=== PATIENT | female | born 1945 | race African-American/Black ===

== ENCOUNTER 2017-03-30 12:38 | Emergency (ER) | payer MEDICARE, OTHER ==
[~2017-03-30] VITALS: Ht 175.3 cm; Wt 111.6 kg
[~2017-03-30 12:38] MED LIST: ALPR0.5T PO; ASPI-630 PO; ASPI1CPM PO; ATOR20TA PO; Amoxicillin/Potassium Clav PO; CARI350T PO; CARV25TA PO; CETI10TA16 PO; CIPR500T6 PO; DIGO125T16 PO; DIPH25CA58 PO; ERTA1VIA IJ; FENO145T PO; FLUT16SP2 NS; FURO80TA72 PO; HYDR12.58 PO; HYDR25TA PO; INSU100C4 SQ; INSU100I13 SQ; INSU100I17 SQ; INSU100I27 SQ; INSU100V8 SQ; ISOS1TAB2 PO; LISI-377 PO; LISI10TA PO; METF-620 PO; METO100T2 PO; METO2.5T PO; MONT10TA9 PO; MULT1CAP15 PO; NIAC500T PO; NITR12SP7 TL; OMEP40CA2 PO; ONDA8TAB9 PO; OXYC-323 PO; POTA10TA31 PO; POTA20TA82 PO; PROAIR HFA8.5 GM IH; SAXA5TAB PO; SCOP1PAT TP; SPIR25TA PO; SPIR25TA3 PO; TEMA30CA6 PO; TORS20TA PO; TORS20TA2 PO; VENL150C PO; Vancomycin Hcl PO
[2017-03-30 12:46] VITALS: BP 132/65
[2017-03-30] MEDS ORDERED: CEPH500T PO (13:14)
--- NOTE | 2017-03-30 13:15 | PHYS DOC ---
Past Medical History Past Medical History: Anxiety, CAD, COPD, CVA, Depression, Diabetes-Type II, GERD, Hypertension, [place], Pancreatitis, UTI Past Surgical History: Appendectomy, Cholecystectomy, Coronary Bypass Surgery, Pacemaker, Tubal ligation, Other Additional Past Surgical Histo: Rt.knee,hernia Alcohol Use: None Drug Use: None Adult General Chief Complaint Chief Complaint: ABSCESS HPI HPI Patient is a 71 year old female presents to the emergency department stating she has an area on the back of her right head that has drainage and discharge noted she states that she has had a spot there that has been swollen and tender for the last few days. Patient denies any fever, chills or any nausea or vomiting. Patient is unsure when her last tetanus immunization occurred. Review of Systems Review of Systems Constitutional: Denies fever or chills [] Eyes: Denies change in visual acuity, redness, or eye pain [] HENT: Denies nasal congestion or sore throat [] Respiratory: Denies cough or shortness of breath [] Cardiovascular: No additional information not addressed in HPI [] GI: Denies abdominal pain, nausea, vomiting, bloody stools or diarrhea [] : Denies dysuria or hematuria [] Musculoskeletal: Denies back pain or joint pain [] Integument: Denies rash or skin lesions. Complaint of area to the right occipital part of her head that has drainage and discharge for the last few days. Neurologic: Denies headache, focal weakness or sensory changes [] Endocrine: Denies polyuria or polydipsia [] Current Medications Current Medications Current Medications Medications (Trade) Dose Ordered Sig/Gil Start Time Stop Time Status Last Admin Dose Admin Diphtheria/ Tetanus/Acell Pertussis (Boostrix) 0.5 ml ONCE ONCE 03/30/17 13:30 03/30/17 13:31 03/30/17 13:09 0.5 ML Allergies Allergies Allergies Coded Allergies Type Severity Reaction Last Updated Verified iodine Allergy Severe Anaphylaxis 06/01/15 Yes I S O L A T I O N *CONTACT* Allergy Unknown 06/01/15 Yes codeine Adverse Reaction Intermediate Nausea and Vomiting 06/01/15 Yes Physical Exam Physical Exam Constitutional: Well developed, well nourished, no acute distress, non-toxic appearance. [] HENT: Normocephalic, atraumatic, bilateral external ears normal, oropharynx moist, no oral exudates, nose normal. [] Eyes: PERRLA, EOMI, conjunctiva normal, no discharge. [] Neck: Normal range of motion, no tenderness, supple, no stridor. [] Cardiovascular:Heart rate regular rhythm, no murmur [] Lungs & Thorax: Bilateral breath sounds clear to auscultation [] Skin: Warm, dry, no erythema, no rash. Patient with an abscess noted to her right upper back had. It appears to be draining some yellow discharge. The area appears to be red appears to be the size of a small marble. Back: No tenderness Extremities: No tenderness, no cyanosis, no clubbing, ROM intact, no edema. [] Neurologic: Alert and oriented X 3, normal motor function, normal sensory function, no focal deficits noted. [] Psychologic: Affect normal, judgement normal, mood normal. [] Current Patient Data Vital Signs Vital Signs Date Time Temp Pulse Resp B/P (MAP) Pulse Ox O2 Delivery O2 Flow Rate FiO2 03/30/17 12:46 97.9 92 20 132/65 (87) 98 Room Air 97.9 EKG EKG [] Radiology/Procedures Radiology/Procedures [] Course & Med Decision Making Course & Med Decision Making Pertinent Labs and Imaging studies reviewed. (See chart for details) Patient was updated with a tetanus immunization here in the emergency department. Recommended cleaning the head with soap and water twice a day. Patient will be provided with Keflex. She was encouraged follow-up with her primary care physician in the next 3-5 days. She will be discharged home in stable condition signs symptoms to return back to emergency department as been provided. [] Dragon Disclaimer Dragon Disclaimer This electronic medical record was generated, in whole or in part, using a voice recognition dictation system. Departure Departure Impression: Primary Impression: Abscess Disposition: 01 HOME, SELF-CARE Condition: STABLE Referrals: NAFISA GOLDSMITH MD (PCP) Patient Instructions: Abscess, [id number] Additional Instructions: Keep the area clean and dry. You may apply antibiotic ointment as needed to the area. Medication as prescribed. Follow-up to primary care physician next 3-5 days. Return back to emergency prior signs symptoms of become worse. Scripts Cephalexin (CEPHALEXIN) 500 Mg Tablet 1 TAB PO BID, #20 TAB Prov: ALYSSA PAINTER IMPLEMENTATION CONSULTANT 03/30/17 ALYSSA PAINTER APRN Mar 30, 2017 13:15
[2017-03-30] MEDS ORDERED: DIPHTH,PERTUSS(ACELL),TET TOX 0.5 ML DISP.SYRIN. VAX IM ONE (13:30)
== END 2017-03-30 13:16 | disposition home or self-care (01) ==
LOC: ER 12:38
DX: L02.811 Cutaneous abscess of head [any part, except face] (principal); F41.9 Anxiety disorder, unspecified; I25.10 Atherosclerotic heart disease of native coronary artery without angina pectoris; J44.9 Chronic obstructive pulmonary disease, unspecified; I10 Essential (primary) hypertension; F32.9 Major depressive disorder, single episode, unspecified; E11.9 Type 2 diabetes mellitus without complications; K21.9 Gastro-esophageal reflux disease without esophagitis; I25.2 Old myocardial infarction; Z95.0 Presence of cardiac pacemaker; Z95.1 Presence of aortocoronary bypass graft; Z90.49 Acquired absence of other specified parts of digestive tract; Z87.440 Personal history of urinary (tract) infections; Z91.041 Radiographic dye allergy status; Z86.73 Personal history of transient ischemic attack (TIA), and cerebral infarction without residual deficits; Z88.8 Allergy status to other drugs, medicaments and biological substances
CPT/HCPCS: 90471; 90715; 99284-25

== ENCOUNTER → 2017-09-27 | Day surgery (SDC) | payer MEDICARE, OTHER ==
[~2017-09-27] MED LIST changes: -ALPR0.5T PO; -ASPI-630 PO; -ASPI1CPM PO; -ATOR20TA PO; -Amoxicillin/Potassium Clav PO; -CARI350T PO; -CARV25TA PO; -CETI10TA16 PO; -CIPR500T6 PO; -DIGO125T16 PO; -DIPH25CA58 PO; -ERTA1VIA IJ; -FENO145T PO; -FLUT16SP2 NS; -FURO80TA72 PO; -HYDR12.58 PO; -HYDR25TA PO; -INSU100C4 SQ; -INSU100I13 SQ; -INSU100I17 SQ; -INSU100I27 SQ; -INSU100V8 SQ; -ISOS1TAB2 PO; +IV RINGERS,LACTATED 1000ML 1,000 ML IV; +LIDOCAINE 1% PF 2 ML VIAL. ID; -LISI-377 PO; -LISI10TA PO; -METF-620 PO; -METO100T2 PO; -METO2.5T PO; -MONT10TA9 PO; -MULT1CAP15 PO; -NIAC500T PO; -NITR12SP7 TL; -OMEP40CA2 PO; -ONDA8TAB9 PO; +ONDANSETRON PF 4 MG/2 ML VIAL. IV; -OXYC-323 PO; -POTA10TA31 PO; -POTA20TA82 PO; -PROAIR HFA8.5 GM IH; +PROCHLORPERAZINE 10 MG/2 ML VIAL. IV; +PROPOFOL 40 ML IV; -SAXA5TAB PO; -SCOP1PAT TP; -SPIR25TA PO; -SPIR25TA3 PO; -TEMA30CA6 PO; -TORS20TA PO; -TORS20TA2 PO; -VENL150C PO; -Vancomycin Hcl PO; +fentaNYL PF VIAL 100 MCG/2 ML VIAL IV
== END | disposition home or self-care (01) ==
LOC: ENDOS 09:42
DX: Z09 Encounter for follow-up examination after completed treatment for conditions other than malignant neoplasm (principal); I10 Essential (primary) hypertension (principal); E11.9 Type 2 diabetes mellitus without complications; Z86.010 Personal history of colon polyps
CPT/HCPCS: 45378; J2704

== ENCOUNTER 2018-09-20 18:55 | Emergency (ER) | payer MEDICARE, OTHER ==
[~2018-09-20] VITALS: Ht 160 cm; Wt 118.8 kg
[~2018-09-20 18:55] MED LIST changes: +ALBU2.5V8 IH; +ALPR0.5T PO; +ASPI-630 PO; +ASPI1CPM PO; +ATOR20TA PO; +Amoxicillin/Potassium Clav PO; +CARI350T PO; +CARV25TA PO; +CEPH500T PO; +CETI10TA16 PO; +CIPR500T6 PO; +DIGO125T79 PO; +DIPH25CA58 PO; +ERTA1VIA IJ; +FENO145T PO; +FLUT16SP2 NS; +FURO80TA72 PO; +HYDR12.58 PO; +HYDR25TA PO; +INSU100C4 SQ; +INSU100I13 SQ; +INSU100I17 SQ; +INSU100I27 SQ; +INSU100V8 SQ; +ISOS1TAB2 PO; -IV RINGERS,LACTATED 1000ML 1,000 ML IV; -LIDOCAINE 1% PF 2 ML VIAL. ID; +LISI-377 PO; +LISI10TA PO; +METF10007 PO; +METO100T7 PO; +METO2.5T PO; +MONT10TA9 PO; +MULT1CAP15 PO; +NIAC500T PO; +NITR12SP7 TL; +OMEP40CA2 PO; +ONDA8TAB9 PO; -ONDANSETRON PF 4 MG/2 ML VIAL. IV; +OXYC1TAB15 PO; +POTA10TA31 PO; +POTA20TA82 PO; -PROCHLORPERAZINE 10 MG/2 ML VIAL. IV; -PROPOFOL 40 ML IV; +SAXA5TAB PO; +SCOP1PAT11 TP; +SPIR25TA PO; +SPIR25TA5 PO; +TEMA30CA6 PO; +TORS20TA PO; +TORS20TA2 PO; +VENL150C PO; +Vancomycin Hcl PO; -fentaNYL PF VIAL 100 MCG/2 ML VIAL IV
[2018-09-20 19:30] VITALS: BP 203/88
[2018-09-20] MEDS ORDERED: fentaNYL PF VIAL 100 MCG/2 ML VIAL IM ONE (19:45)
[2018-09-20] MEDS ORDERED: cloNIDine HCL 0.1 MG TABLET PO ONE (20:00)
[2018-09-20] MEDS ORDERED: DICL100G18 TP (21:20)
--- NOTE | 2018-09-20 21:21 | PHYS DOC ---
Past Medical History Past Medical History: Anxiety, CAD, COPD, CVA, Depression, Diabetes-Type II, GERD, Hypertension, [place], Pancreatitis, UTI Past Surgical History: Appendectomy, Cholecystectomy, Coronary Bypass Surgery, Pacemaker, Tubal ligation, Other Additional Past Surgical Histo: Rt.knee,hernia Alcohol Use: None Drug Use: None Adult General Chief Complaint Chief Complaint: WRIST PAIN HPI HPI Patient is a 73 year old female with multiple medical problems including anxiety, hypertension, diabetes type 2, arthritis, among other conditions who presents today complaining of 10 out of 10 generalized left wrist pain that began this morning. Patient denies any known injury. Patient states the pain is worse on range of motion. Patient states she has not taken anything for her pain. Review of Systems Review of Systems Constitutional: Denies fever or chills [] Musculoskeletal: Reports left wrist pain Integument: Denies rash or skin lesions [] Neurologic: Denies headache, focal weakness or sensory changes [] All other systems were reviewed and found to be within normal limits, except as documented in this note. Current Medications Current Medications Current Medications Medications (Trade) Dose Ordered Sig/Gil Start Time Stop Time Status Last Admin Dose Admin Clonidine HCl (Catapres) 0.2 mg 1X ONCE 09/20/18 20:00 09/20/18 20:01 DC 09/20/18 19:58 0.2 MG Fentanyl Citrate (Fentanyl 2ml Vial) 50 mcg 1X ONCE 09/20/18 19:45 09/20/18 19:46 DC 09/20/18 19:58 50 MCG Allergies Allergies Allergies Coded Allergies Type Severity Reaction Last Updated Verified iodine Allergy Severe Anaphylaxis 09/27/17 Yes I S O L A T I O N *CONTACT* Allergy Unknown 09/27/17 Yes codeine Adverse Reaction Intermediate Nausea and Vomiting 09/27/17 Yes Physical Exam Physical Exam Constitutional: Well developed, well nourished, no acute distress, non-toxic appearance. [] Skin: Warm, dry, no erythema, no rash. [] Back: No tenderness, no CVA tenderness. [] Extremities: Left wrist with no obvious deformity. Small amount of soft tissue swelling noted around the wrist. No scaphoid tenderness on exam. Full passive range of motion to the left wrist, full active range of motion to the left fingers. Adequate radial, medial, ulnar sensation to the left hand. +2 left radial pulse. Cap refill less than 2 seconds the left fingers. Neurologic: Alert and oriented X 3, normal motor function, normal sensory function, no focal deficits noted. [] Psychologic: Affect normal, judgement normal, mood normal. [] Current Patient Data Vital Signs Vital Signs Date Time Temp Pulse Resp B/P (MAP) Pulse Ox O2 Delivery O2 Flow Rate FiO2 09/20/18 19:58 89 202/105 09/20/18 19:58 18 99 09/20/18 19:30 99.4 Room Air 99.4 EKG EKG [] Radiology/Procedures Radiology/Procedures [] Course & Med Decision Making Course & Med Decision Making Pertinent Labs and Imaging studies reviewed. (See chart for details) This is a 73-year-old female patient presenting to the ED today with left wrist pain. No known injury. Left wrist x-rays interpreted by Dr. Shearer are negative for any acute findings. Noted for arthritis. Tony bandage applied to the left wrist by the ED RN, neurovascular exam is intact. Ice elevation encouraged. Discharged with Voltaren cream. Provided orthopedic doctor for follow-up as an outpatient. Staff Physician Addendum: I was working in the ER during the course of this patient's visit. I was available for consultation as needed, but I was not directly involved in the care of this patient. Dragon Disclaimer Dragon Disclaimer This electronic medical record was generated, in whole or in part, using a voice recognition dictation system. 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 Try to ice and elevate the extremity. Continue wrapping it with an Tony bandage as tolerated. Follow-up with the provided orthopedic doctor in 1-2 weeks. Use the medication prescribed as ordered. Scripts Diclofenac Sodium (VOLTAREN) 100 Gm Gel..gram. 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
--- NOTE | 2018-09-20 23:06 | RAD ---
LEFT WRIST, 3 VIEWS Indication: ER PATIENT. LEFT WRIST PAIN, NKI. Findings: There is no acute fracture or dislocation. No bony erosion is identified. Mild DJD of the first CMC. Mild joint space narrowing fifth MCP. The mineralization is normal. There is dorsal soft tissue swelling of the wrist. Tiny ossific body is noted in the palmar soft tissues near the base of the fourth metacarpal. IMPRESSION: No acute fracture. Electronically signed by: Chris Miller MD (09/20/2018 11:02 PM) [facility]
== END 2018-09-20 21:20 | disposition home or self-care (01) ==
LOC: ER 18:55
DX: M19.032 Primary osteoarthritis, left wrist (principal); J44.9 Chronic obstructive pulmonary disease, unspecified; I25.10 Atherosclerotic heart disease of native coronary artery without angina pectoris; E11.9 Type 2 diabetes mellitus without complications; K21.9 Gastro-esophageal reflux disease without esophagitis; I10 Essential (primary) hypertension; I25.2 Old myocardial infarction; Z95.5 Presence of coronary angioplasty implant and graft; Z95.0 Presence of cardiac pacemaker; Z91.041 Radiographic dye allergy status; Z88.5 Allergy status to narcotic agent
CPT/HCPCS: 73110; 96372; 99283; J3010

== ENCOUNTER → 2019-11-16 | Outpatient (CLI) | payer MEDICARE, MEDICAID ==
[2018-09-20 19:58] VITALS: BP 202/105
[~2019-11-16] MED LIST changes: +DICL100G18 TP; +MONT10TA49 PO; -MONT10TA9 PO; +POTA20TA4 PO; -POTA20TA82 PO
[2019-11-16 13:15] LABS: BASE EXCESS ABG 4 mmol/L (-3-3); HCO3 ABG 29 mmol/L (21-28); PCO2 ABG 47 mmHg (35-46); PO2 ABG 72 mmHg (65-108); SAT O2 ABG 94 % (92-99)
== END | disposition home or self-care (01) ==
LOC: LAB 12:04
PROVIDERS: ATTEND Internal Medicine
DX: J44.9 Chronic obstructive pulmonary disease, unspecified (principal)
CPT/HCPCS: 36600; 82805

== ENCOUNTER 2020-02-12 21:49 | Emergency (ER) | payer MEDICARE, MEDICAID ==
[~2020-02-12] VITALS: Ht 157.5 cm; Wt 100.0 kg
[~2020-02-12 21:49] MED LIST changes: -DICL100G18 TP; +DICL100G54 TP; -ERTA1VIA IJ; +ERTA1VIA16 IJ
[2020-02-12] MEDS ORDERED: fentaNYL PF VIAL 100 MCG/2 ML VIAL IV PRN (22:15)
[2020-02-12 22:28] LABS: BASO # 0.1 x10^3/uL (0.0-0.2); BASO % 1 % (0-3); EOS # 0.3 x10^3/uL (0.0-0.7); EOS % 3 % (0-3); HEMATOCRIT 29.1 % (36.0-47.0); HEMOGLOBIN 9.4 g/dL (12.0-15.5); LYMPH # 3.9 x10^3/uL (1.0-4.8); LYMPH % 43 % (24-48); MEAN CORPUSCULAR HEMOGLOBIN 27 pg (25-35); MEAN CORPUSCULAR HGB CONC 32 g/dL (31-37); MEAN CORPUSCULAR VOLUME 84 fL (79-100); MONO # 1.1 x10^3/uL (0.0-1.1); MONO % 12 % (0-9); NEUT # 3.8 x10^3/uL (1.8-7.7); NEUT % 42 % (31-73); PLATELET COUNT 258 x10^3/uL (140-400); RED BLOOD COUNT 3.48 x10^6/uL (3.50-5.40); RED CELL DISTRIBUTION WIDTH 16.9 % (11.5-14.5)
[2020-02-12] MEDS ORDERED: IV NORMAL SALINE 1000ML BAG 1,000 ML IV SCH (22:30)
[2020-02-12] MEDS ORDERED: ONDANSETRON PF 4 MG/2 ML VIAL. IVP ONE (22:30)
[2020-02-12 22:31] LABS: BILIRUBIN,URINE NEGATIVE (NEG); CLARITY,URINE CLEAR; COLOR,URINE YELLOW; NITRITE,URINE NEGATIVE (NEG); PROTEIN,URINE NEGATIVE (NEG-TRACE)
[2020-02-12 22:43] LABS: BACTERIA,URINE MANY /HPF (0-FEW); RBC,URINE 0 /HPF (0-2); SQUAMOUS EPITHELIAL CELL,UR MANY /LPF
[2020-02-12 22:46] LABS: CALCIUM 8.9 mg/dL (8.5-10.1); CREATININE 1.6 mg/dL (0.6-1.0); GFR 38.1; POTASSIUM 4.2 mmol/L (3.5-5.1)
[2020-02-12 22:52] LABS: ALBUMIN 3.5 g/dL (3.4-5.0); ALBUMIN/GLOBULIN RATIO 0.9 (1.0-1.7); TOTAL BILIRUBIN 0.2 mg/dL (0.2-1.0); TOTAL PROTEIN 7.2 g/dL (6.4-8.2)
--- NOTE | 2020-02-13 00:05 | RAD ---
EXAM: CT ABDOMEN/PELVIS WITHOUT CONTRAST. HISTORY: Left abdominal pain and hip pain. Fall. TECHNIQUE: Computed tomography of the abdomen and pelvis was performed without intravenous contrast. One or more of the following individualized dose reduction techniques were utilized for this examination: 1. Automated exposure control. 2. Adjustment of the mA and/or kV according to patient size. 3. Use of iterative reconstruction technique. COMPARISON: 05/23/2015. FINDINGS: Lung windows through the visualized portions of the bases reveal an ill-defined semisolid nodule in the lingula on image 21 measuring 2.3 x 0.9 cm. Other smaller nodules are seen on images 11, 21, and 37. There are changes of coronary artery bypass grafting. Bone windows reveal no suspicious lesions. There are erosive changes at the endplates of L5-S1 with relative preservation of the disc space. There is also irregularity of the facet joints. Central canal stenosis appears severe at L5-S1 and moderate to severe at L4-5. A hypoattenuating lesion in the right hepatic lobe on image 63 measures 12 mm and is incompletely characterized. The gallbladder is surgically absent. The common duct measures 16 mm. There is mild to moderate intrahepatic biliary dilatation. No cause for distal obstruction is seen. The main pancreatic duct is dilated distally at 5 mm. No clear pancreatic parenchymal lesions are seen. And the adrenal glands and spleen are unremarkable. A calculus in the left renal lower pole measures 18 x 13 mm. There are scattered cortical scars throughout the right kidney with overall mild right renal atrophy. No ureteral calculi are identified. There are no pathologically enlarged lymph nodes. The uterus is surgically absent. The appendix is surgically absent. There is no small bowel obstruction. There is no free fluid or air. A femoral-femoral bypass graft is noted. Patency cannot be assessed without contrast. IMPRESSION: 1. No evidence of intra-abdominal or pelvic injury. 2. Moderate extrahepatic biliary dilatation status post cholecystectomy. Correlate for cholestasis to assess significance. The pancreatic duct is also somewhat dilated. MRCP or ERCP could assess for ampullary stenosis if there is persistent concern. 3. Semisolid nodules in the lung bases measure up to 2.3 cm in the lingula. These may be inflammatory but are indeterminate. In the absence of known active infection, nonemergent CT of the chest is recommended to exclude additional nodules. 4. Large 18 mm left renal lower pole calculus. 5. Central canal stenosis is moderate to severe at L4-5 and severe at L5-S1. Electronically signed by: Low Murrell MD (02/13/2020 12:02 AM) [facility]
--- NOTE | 2020-02-13 00:14 | PHYS DOC ---
Past Medical History Past Medical History: Anxiety, CAD, COPD, CVA, Depression, Diabetes-Type II, GERD, Hypertension, [place], Pancreatitis, UTI Past Surgical History: Appendectomy, Cholecystectomy, Coronary Bypass Surgery, Pacemaker, Tubal ligation, Other Additional Past Surgical Histo: Rt.knee,hernia Smoking Status: Former Smoker Alcohol Use: None Drug Use: None General Adult EDM: Chief Complaint: FLANK PAIN HPI: HPI: Patient is a 74 year old female who presents with complaint of left lower abdominal pain as well as pain in her back. Family indicates that when this happens, patient usually has a urinary tract infection. Per EMS, they were informed family that patient has had to be admitted into the ICU for sepsis before and they wanted to make sure that patient did not get sick again. EMS states that family indicates patient's mental status is normal at baseline. She does rate pain is moderate. Patient has had no vomiting or diarrhea. Patient is not aware of any fever. [] Review of Systems: Review of Systems: Constitutional: Denies fever or chills. [] Respiratory: Denies cough or shortness of breath. [] Cardiovascular: Denies chest pain or edema. [] GI: Denies abdominal pain, nausea, vomiting or diarrhea. [] Musculoskeletal: Complains of left-sided flank pain. [] Neurologic: Denies headache, focal weakness or sensory changes. [] A full 10 point review of systems has been reviewed and is otherwise negative. Heart Score: Risk Factors: Risk Factors: DM, Current or recent (<one month) smoker, HTN, HLP, family history of CAD, obesity. Risk Scores: Score 0 - 3: 2.5% MACE over next 6 weeks - Discharge Home Score 4 - 6: 20.3% MACE over next 6 weeks - Admit for Clinical Observation Score 7 - 10: 72.7% MACE over next 6 weeks - Early Invasive Strategies Current Medications: Current Medications Medications (Trade) Dose Ordered Sig/Gil Start Time Stop Time Status Last Admin Dose Admin Fentanyl Citrate (Fentanyl 2ml Vial) 25 mcg PRN Q15MIN PRN 02/12/20 22:15 02/13/20 22:14 02/12/20 23:10 25 MCG Ondansetron HCl (Zofran) 4 mg 1X ONCE 02/12/20 22:30 02/12/20 22:31 DC 02/12/20 23:10 4 MG Sodium Chloride 500 ml @ 500 mls/hr 1X ONCE 02/13/20 00:15 02/13/20 01:14 02/13/20 00:02 500 MLS/HR Allergies: Allergies: Allergies Coded Allergies Type Severity Reaction Last Updated Verified iodine Allergy Severe Anaphylaxis 09/27/17 Yes I S O L A T I O N *CONTACT* Allergy Unknown 09/27/17 Yes codeine Adverse Reaction Intermediate Nausea and Vomiting 09/27/17 Yes Physical Exam: PE: Constitutional: Well developed, well nourished, no acute distress, non-toxic appearance. [] HENT: Normocephalic, atraumatic, bilateral external ears normal, oropharynx moist, no oral exudates, nose normal. [] Eyes: PERRLA, EOMI, conjunctiva normal, no discharge. [] Neck: Normal range of motion, no tenderness, supple, no stridor. [] Cardiovascular: Regular rate and rhythm [] Lungs & Thorax: Bilateral breath sounds clear to auscultation [] Abdomen: Bowel sounds normal, soft, with mild suprapubic tenderness. [] Skin: Warm, dry, no erythema, no rash. [] Extremities: No tenderness, no cyanosis, no clubbing, ROM intact. [] Neurologic: Awake and alert, no focal deficits noted. [] Current Patient Data: Labs: Laboratory Tests Test 02/12/20 22:15 White Blood Count 9.0 x10^3/uL (4.0-11.0) Red Blood Count 3.48 x10^6/uL (3.50-5.40) L Hemoglobin 9.4 g/dL (12.0-15.5) L Hematocrit 29.1 % (36.0-47.0) L Mean Corpuscular Volume 84 fL (79-100) Mean Corpuscular Hemoglobin 27 pg (25-35) Mean Corpuscular Hemoglobin Concent 32 g/dL (31-37) Red Cell Distribution Width 16.9 % (11.5-14.5) H Platelet Count 258 x10^3/uL (140-400) Neutrophils (%) (Auto) 42 % (31-73) Lymphocytes (%) (Auto) 43 % (24-48) Monocytes (%) (Auto) 12 % (0-9) H Eosinophils (%) (Auto) 3 % (0-3) Basophils (%) (Auto) 1 % (0-3) Neutrophils # (Auto) 3.8 x10^3/uL (1.8-7.7) Lymphocytes # (Auto) 3.9 x10^3/uL (1.0-4.8) Monocytes # (Auto) 1.1 x10^3/uL (0.0-1.1) Eosinophils # (Auto) 0.3 x10^3/uL (0.0-0.7) Basophils # (Auto) 0.1 x10^3/uL (0.0-0.2) Urine Collection Type U cath Urine Color Yellow Urine Clarity Clear Urine pH 6.0 (<5.0-8.0) Urine Specific [place] 1.010 (1.000-1.030) Urine Protein Negative mg/dL (NEG-TRACE) Urine Glucose (UA) Negative mg/dL (NEG) Urine Ketones (Stick) Negative mg/dL (NEG) Urine Blood Negative (NEG) Urine Nitrite Negative (NEG) Urine Bilirubin Negative (NEG) Urine Urobilinogen Dipstick 1.0 mg/dL (0.2 mg/dL) Urine Leukocyte Esterase Large (NEG) Urine RBC 0 /HPF (0-2) Urine WBC 11-20 /HPF (0-4) Urine Squamous Epithelial Cells Many /LPF Urine Bacteria Many /HPF (0-FEW) Sodium Level 136 mmol/L (136-145) Potassium Level 4.2 mmol/L (3.5-5.1) Chloride Level 98 mmol/L (98-107) Carbon Dioxide Level 29 mmol/L (21-32) Anion Gap 9 (6-14) Blood Urea Nitrogen 26 mg/dL (7-20) H Creatinine 1.6 mg/dL (0.6-1.0) H Estimated GFR (Cockcroft-Gault) 38.1 BUN/Creatinine Ratio 16 (6-20) Glucose Level 173 mg/dL (70-99) H Calcium Level 8.9 mg/dL (8.5-10.1) Total Bilirubin 0.2 mg/dL (0.2-1.0) Aspartate Amino Transferase (AST) 26 U/L (15-37) Alanine Aminotransferase (ALT) 27 U/L (14-59) Alkaline Phosphatase 142 U/L (46-116) H Total Protein 7.2 g/dL (6.4-8.2) Albumin 3.5 g/dL (3.4-5.0) Albumin/Globulin Ratio 0.9 (1.0-1.7) L Lipase 186 U/L (73-393) Laboratory Tests 02/12/20 22:15 Laboratory Tests 02/12/20 22:15 Vital Signs: Vital Signs Date Time Temp Pulse Resp B/P (MAP) Pulse Ox O2 Delivery O2 Flow Rate FiO2 02/12/20 23:10 98 Room Air 02/12/20 21:49 98.9 82 20 141/61 (87) 98.9 EKG: EKG: [] Radiology/Procedures: Radiology/Procedures: [] Impression: PROCEDURE: CT ABDOMEN PELVIS WO CONTRAST EXAM: CT ABDOMEN/PELVIS WITHOUT CONTRAST. HISTORY: Left abdominal pain and hip pain. Fall. TECHNIQUE: Computed tomography of the abdomen and pelvis was performed without intravenous contrast. One or more of the following individualized dose reduction techniques were utilized for this examination: 1. Automated exposure control. 2. Adjustment of the mA and/or kV according to patient size. 3. Use of iterative reconstruction technique. COMPARISON: 05/23/2015. FINDINGS: Lung windows through the visualized portions of the bases reveal an ill-defined semisolid nodule in the lingula on image 21 measuring 2.3 x 0.9 cm. Other smaller nodules are seen on images 11, 21, and 37. There are changes of coronary artery bypass grafting. Bone windows reveal no suspicious lesions. There are erosive changes at the endplates of L5-S1 with relative preservation of the disc space. There is also irregularity of the facet joints. Central canal stenosis appears severe at L5-S1 and moderate to severe at L4-5. A hypoattenuating lesion in the right hepatic lobe on image 63 measures 12 mm and is incompletely characterized. The gallbladder is surgically absent. The common duct measures 16 mm. There is mild to moderate intrahepatic biliary dilatation. No cause for distal obstruction is seen. The main pancreatic duct is dilated distally at 5 mm. No clear pancreatic parenchymal lesions are seen. And the adrenal glands and spleen are unremarkable. A calculus in the left renal lower pole measures 18 x 13 mm. There are scattered cortical scars throughout the right kidney with overall mild right renal atrophy. No ureteral calculi are identified. There are no pathologically enlarged lymph nodes. The uterus is surgically absent. The appendix is surgically absent. There is no small bowel obstruction. There is no free fluid or air. A femoral-femoral bypass graft is noted. Patency cannot be assessed without contrast. IMPRESSION: 1. No evidence of intra-abdominal or pelvic injury. 2. Moderate extrahepatic biliary dilatation status post cholecystectomy. Correlate for cholestasis to assess significance. The pancreatic duct is also somewhat dilated. MRCP or ERCP could assess for ampullary stenosis if there is persistent concern. 3. Semisolid nodules in the lung bases measure up to 2.3 cm in the lingula. These may be inflammatory but are indeterminate. In the absence of known active infection, nonemergent CT of the chest is recommended to exclude additional nodules. 4. Large 18 mm left renal lower pole calculus. 5. Central canal stenosis is moderate to severe at L4-5 and severe at L5-S1. Electronically signed by: Low Murrell MD (02/13/2020 12:02 AM) [facility] Course & Med Decision Making: Course & Med Decision Making Pertinent Labs and Imaging studies reviewed. (See chart for details) [] Dragon Disclaimer: Dragon Disclaimer: This electronic medical record was generated, in whole or in part, using a voice recognition dictation system. Departure Departure Impression: Primary Impression: UTI (urinary tract infection) Qualified Codes: N39.0 - Urinary tract infection, site not specified Disposition: 01 HOME, SELF-CARE Condition: STABLE Referrals: NAFISA GOLDSMITH MD (PCP) Patient Instructions: Urinary Tract Infection Scripts Nitrofurantoin Monohyd/M-Cryst (MACROBID 100 MG CAPSULE) 100 Mg Capsule 1 CAP PO BID for 7 Days, #14 CAP 0 Refills Prov: SAMI RICHTER Jr. DO 02/13/20 SAMI RICHTER Jr. DO February 13, 2020 00:13
[2020-02-13] MEDS ORDERED: IV NORMAL SALINE 500ML BAG 500 ML IV ONE (00:15)
[2020-02-13] MEDS ORDERED: cefTRIAXone IV Push 1 GM VIAL. IVP ONE (00:30)
[2020-02-13 00:40] VITALS: BP 136/55
[2020-02-13] MEDS ORDERED: NITR100C62 PO (00:54)
== END 2020-02-13 01:50 | disposition home or self-care (01) ==
LOC: ER 21:49
DX: N39.0 Urinary tract infection, site not specified (principal); J44.9 Chronic obstructive pulmonary disease, unspecified; K21.9 Gastro-esophageal reflux disease without esophagitis; E11.9 Type 2 diabetes mellitus without complications; I10 Essential (primary) hypertension; I25.10 Atherosclerotic heart disease of native coronary artery without angina pectoris; I25.2 Old myocardial infarction; Z90.89 Acquired absence of other organs; Z90.49 Acquired absence of other specified parts of digestive tract; Z95.1 Presence of aortocoronary bypass graft; Z95.0 Presence of cardiac pacemaker; Z98.51 Tubal ligation status; Z87.891 Personal history of nicotine dependence; Z91.041 Radiographic dye allergy status; Z88.5 Allergy status to narcotic agent; Z88.8 Allergy status to other drugs, medicaments and biological substances
CPT/HCPCS: 36415; 74176; 80053; 81001; 83690; 85025; 87086; 96374; 96375; 99285; J0696; J2405; J3010; J7040